=== PATIENT | female | born 1960 | race Caucasian/White ===

== ENCOUNTER 2019-04-25 12:16 | Emergency (ER) | payer OTHER ==
[~2019-04-25] VITALS: Ht 165.1 cm; Wt 72.6 kg
[~2019-04-25 12:16] MED LIST: EYE DROPS OU; HYDR-3720 PO; NITR-33 PO
[2019-04-25] MEDS ORDERED: AMOX500C2 PO (13:09)
--- NOTE | 2019-04-25 13:09 | ED EENT ---
History of Present Illness General Chief Complaint: General Problems/Pain Stated Complaint: JAW PAIN/FACIAL SWELLING Nursing Triage Note: R sided jaw pain x2 days that has been steadily getting worse. States she has been under a lot of stress and has been clenching jaws. States it is hard to swallow, almost like there was a lump in her throat that she is swallowing around. Source: patient, family (son) Exam Limitations: no limitations History of Present Illness Date Seen by Provider: Apr 25, 2019 Time Seen by Provider: 12:55 Initial Comments The patient presents to ER by private conveyance with her son and chief complaint of some right-sided jaw pain on opening or closing some swelling of the lymph nodes in her right side of her neck and feeling like she has a lump in her throat when she swallows. No runny nose cough shortness of breath chest pain history of coronary disease. 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 Her was recently put in the hospital and she's had a lot of increased stress lately and has felt herself clenching her jaw down a lot and suspects that might also been the source of her pain so she was reluctant to come. Allergies and Home Medications Allergies Coded Allergies: No Known Drug Allergies (Unverified , 01/08/12) Home Medications Hydrocodone Bit/Acetaminophen 1 Ea Tab, 1-2 EA PO Q4HR PRN, (Reported) MAY TAKE 1 OR 2 TABLETS BY MOUTH EVERY 4 HRS NEEDED FOR PAIN DO NOT EXCEED 3000 MG TYLENOL (ACETAMINOPHEN)IN 24 HR PERIOD Nitrofurantoin Macrocrystals 100 Mg Capsule, 1 EACH PO BID, (Reported) TAKE ONE BY MOUTH TWICE A DAY WITH MEALS. USE ALL OF THIS MEDICATION PRESCRIBED [Eye Drops ] , OU DAILY, (Reported) USES FOR GLAUCOMA Patient Home Medication List Home Medication List Reviewed: Yes Review of Systems Review of Systems Constitutional: chills, fever (subjective), malaise Eyes: Denies Blindness, Denies Blurred Vision Ears: Denies Dizziness, Denies Pain Nose: denies clots, denies congestion Mouth: denies clots, denies loose teeth Throat: denies pain, denies swelling Respiratory: No cough, No short of breath Past Qbarctw-Rqaxcd-Ewdtvk Hx Patient Social History Alcohol Use: Denies Use Recreational Drug Use: No Smoking Status: Never a Smoker Recent Foreign Travel: No Contact w/Someone Who Travel: No Recent Infectious Disease Expo: No Past Medical History Reproductive Disorders: No Physical Exam Vital Signs Vital Signs - First Documented 04/25/19 12:27 Temp 97.7 Pulse 68 Resp 18 B/P (MAP) 156/94 (114) Pulse Ox 97 Height, Weight, BMI Height: 5'5.00" Weight: 160lbs. oz. [id number]; BMI Method:Stated General Appearance: WD/WN, no apparent distress Eyes: bilateral eye normal inspection, bilateral eye PERRL, bilateral eye EOMI Ears: bilateral ear auricle normal, bilateral ear canal normal, bilateral ear TM normal Nose: normal inspection; No active bleeding, No discharge Mouth/Throat: No dental tenderness, No excessive drooling, No foreign body, No mandibular swelling, No maxillary swelling; other (masses or tumor. No swelling or erythema or injection of the throat. Mild dental caries. 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 Discussed options of doing labs and workup versus conservative management she would prefer conservative management. Plan to put her on some Tylenol, ibuprofen, heating pads and amoxicillin for one week. Follow-up with Dr. Triana next 1-2 weeks. Departure Impression Primary Impression: Jaw pain Disposition: 01 HOME, SELF-CARE Condition: Stable Departure-Patient Inst. Decision time for Depature: 13:08 Referrals: NO,LOCAL PHYSICIAN (PCP/Family) Primary Care Physician Patient Instructions: Bruxism (DC) Add. Discharge Instructions: Amoxicillin one capsule 3 times a day for the next week. Her Profen 400 mg 3 times a day for the next week. Tylenol 1000 g every 8 hours as needed for pain. Follow-up in one to 2 weeks with primary care. Return to the ER to begin to have other worrisome symptoms such as chest pain, shortness of breath, inability to swallow etc. All discharge instructions reviewed with patient and/or family. Voiced understanding. Scripts Amoxicillin (Amoxicillin) 500 Mg Capsule 500 MG PO TID, #21 CAP 0 Refills Prov: HERVE PARKS 04/25/19 HERVE PARKS Apr 25, 2019 13:09
[2019-04-25 13:17] VITALS: BP 156/94
== END 2019-04-25 13:23 | disposition home or self-care (01) ==
LOC: EDUNIT# 12:16 → ER FS 12:18
DX: R68.84 Jaw pain (principal)
CPT/HCPCS: 93005

== ENCOUNTER → 2020-02-08 | Outpatient (CLI) | payer OTHER ==
[~2020-02-08] MED LIST changes: +AMOX500C2 PO
--- NOTE | 2020-02-08 17:17 | Diagnostic Imaging Report ---
HISTORY: Bilateral hand pain. TECHNIQUE: Two views of the right and left hands. COMPARISON: None. FINDINGS: Right hand: No acute fracture or dislocation is seen in the right hand. Alignment appears normal. Joint spaces are mildly decreased, particularly in the distal interphalangeal joints and the first carpometacarpal joint. No cortical erosion is seen. Left hand: No acute fracture or dislocation is seen in the left hand. Alignment appears normal. No cortical erosions are seen. Mild degenerative changes are also noted on the left. IMPRESSION: 1. Mild degenerative changes in the bilateral hands with no acute osseous abnormality seen. Dictated by: Dictated on workstation # [id number]
== END ==
LOC: RAD FS 16:51
PROVIDERS: ATTEND Nurse Practitioner
DX: M19.042 Primary osteoarthritis, left hand (principal); M19.041 Primary osteoarthritis, right hand